=== PATIENT | female | born 1980 | race Caucasian/White ===

== ENCOUNTER 2016-03-15 00:51 | Emergency (ER) | payer MEDICAID ==
[2015-11-07 06:09] VITALS: BMI 23.9
[~2016-03-15 00:51] MED LIST: HYDROCODONE-APA1 TAB PO; SOMA350 MG PO
[2016-03-15 01:33] LABS: BASOPHILS 0.2 % (0.0-2.0); IMMATURE GRANULOCYTES 0.1 % (0-5); LYMPHOCYTES 47.1 % (15-50); MCH 30.8 pg (26.0-34.0); MCHC 32.4 g/dL (31.0-37.0); MCV 94.9 fL (80.0-100.0); MEAN PLATELET VOLUME 9.9 fL (7.4-10.4); MONOCYTES 13.6 % (2-11); PLATELET COUNT 288 10x3/uL (130-400); RDW 13.5 % (11.5-14.5); WBC 9.9 10x3/uL (4.8-10.8)
[2016-03-15 01:42] LABS: ALBUMIN 3.6 g/dL (3.4-5.0); ALKALINE PHOSPHATASE 70 U/L (46-116); ALT (SGPT) 26 U/L (10-68); BILIRUBIN - TOTAL 0.16 mg/dL (0.2-1.3); CALC OSMOLALITY 279 mosm/kg (275-300); CALCIUM 8.8 mg/dL (8.5-10.1); CARBON DIOXIDE 29.6 mmol/L (21.0-32.0); CHLORIDE - SERUM 104 mmol/L (98-107); CREATININE - SERUM 0.9 mg/dL (0.6-1.3); GLUCOSE 96 mg/dL (74-106); POTASSIUM - SERUM 3.6 mmol/L (3.5-5.1); PROTEIN - SERUM 7.8 g/dL (6.4-8.2); SODIUM 140 mmol/L (136-145); UREA NITROGEN 15 mg/dL (7-18); eGFR NON AFRICAN AMERICAN 76 mL/min (90-120)
[2016-03-15 02:18] LABS: APPEARANCE CLEAR (CLEAR); BILIRUBIN NEGATIVE (NEGATIVE); COLOR YELLOW (YELLOW); GLUCOSE NEGATIVE (NEGATIVE); KETONE SMALL mg/dL (NEGATIVE); LEUKOCYTE ESTERASE NEGATIVE (NEGATIVE); NITRITE NEGATIVE (NEGATIVE); PROTEIN NEGATIVE (NEGATIVE); UROBILINOGEN NORMAL (NORMAL)
== END 2016-03-15 03:45 | disposition home or self-care (01) ==
LOC: D.ER 00:51
PROVIDERS: Family Medicine
DX: R10.9 Unspecified abdominal pain (principal); F17.200 Nicotine dependence, unspecified, uncomplicated

== ENCOUNTER → 2016-10-23 14:17 | Outpatient (CLI) | payer MEDICAID ==
[2015-11-07 06:09] VITALS: BMI 23.9
[2016-10-23 17:46] LABS: ERYTHROCYTE SEDIMENTATION RATE 25 mm/hr (0-20)
[2016-10-26 12:11] LABS: ANA REFLEX - ANTICHROMATIN ABS 0.6 AI (0.0-0.9); ANA REFLEX - CENTROMERE B ABS <0.2 AI (0.0-0.9); ANA REFLEX - DBL STRANDED DNA 1 IU/mL (0-9); ANA REFLEX - DIRECT Positive (Negative); ANA REFLEX - JO-1 AB <0.2 AI (0.0-0.9); ANA REFLEX - RNP ANTIBODIES 0.8 AI (0.0-0.9); ANA REFLEX - SCL-70 <0.2 AI (0.0-0.9); ANA REFLEX - SJOGRENS AB SSB <0.2 AI (0.0-0.9); ANA REFLEX - SMITH AB 0.3 AI (0.0-0.9)
== END | disposition home or self-care (01) ==
LOC: D.LABREF 14:17
PROVIDERS: Student in an Organized Health Care Education/Training Program
DX: R21 Rash and other nonspecific skin eruption (principal); M25.50 Pain in unspecified joint; R53.83 Other fatigue

== ENCOUNTER 2016-12-12 17:07 | Emergency (ER) | payer MEDICAID ==
[2015-11-07 06:09] VITALS: BMI 23.9
[2016-12-12 20:13] LABS: BASOPHILS 0.2 % (0-2); EOSINOPHILS 3.5 % (0-7); HEMATOCRIT 40.8 % (36.0-48.0); HEMOGLOBIN 13.3 g/dL (12-16); IMMATURE GRANULOCYTES 0.3 % (0-5); LYMPHOCYTES 38.6 % (15-50); MCH 30.8 pg (26.0-34.0); MCHC 32.6 g/dL (31.0-37.0); MCV 94.4 fL (80.0-100.0); MEAN PLATELET VOLUME 9.8 fL (7.4-10.4); MONOCYTES 10.8 % (2-11); NEUTROPHILS 46.6 % (40-80); PLATELET COUNT 302 10x3/uL (130-400); RBC 4.32 10x6/uL (4.00-5.40); RDW 13.6 % (11.5-14.5); WBC 12.7 10x3/uL (4.8-10.8)
[2016-12-12 20:19] LABS: CALC OSMOLALITY 276 mosm/kg (275-300); CARBON DIOXIDE 30.5 mmol/L (21.0-32.0); CHLORIDE - SERUM 103 mmol/L (98-107); CREATININE - SERUM 0.8 mg/dL (0.6-1.3); GLUCOSE 94 mg/dL (74-106); POTASSIUM - SERUM 3.9 mmol/L (3.5-5.1); SODIUM 140 mmol/L (136-145); UREA NITROGEN 7 mg/dL (7-18); eGFR NON AFRICAN AMERICAN 87 mL/min (90-120)
== END 2016-12-12 21:44 | disposition home or self-care (01) ==
LOC: D.ER 17:07
PROVIDERS: Physician Assistant Medical
DX: H70.92 Unspecified mastoiditis, left ear (principal); F17.200 Nicotine dependence, unspecified, uncomplicated

== ENCOUNTER 2017-02-02 15:29 | Emergency (ER) | payer MEDICAID ==
[2015-11-07 06:09] VITALS: BMI 23.9
[2017-02-02 16:38] LABS: BASOPHILS 0.2 % (0-2); EOSINOPHILS 3.1 % (0-7); HCG URINE NEGATIVE (NEGATIVE); HEMATOCRIT 38.2 % (36.0-48.0); HEMOGLOBIN 12.9 g/dL (12-16); IMMATURE GRANULOCYTES 0.1 % (0-5); LYMPHOCYTES 54.3 % (15-50); MCHC 33.8 g/dL (31.0-37.0); MCV 91.8 fL (80.0-100.0); MEAN PLATELET VOLUME 9.8 fL (7.4-10.4); MONOCYTES 13.6 % (2-11); NEUTROPHILS 28.7 % (40-80); PLATELET COUNT 292 10x3/uL (130-400); RBC 4.16 10x6/uL (4.00-5.40); RDW 13.6 % (11.5-14.5); WBC 9.2 10x3/uL (4.8-10.8)
[2017-02-02 16:39] LABS: APPEARANCE CLEAR (CLEAR); BILIRUBIN NEGATIVE (NEGATIVE); COLOR YELLOW (YELLOW); GLUCOSE NEGATIVE (NEGATIVE); KETONE NEGATIVE (NEGATIVE); NITRITE NEGATIVE (NEGATIVE); PROTEIN NEGATIVE (NEGATIVE); SPECIFIC GRAVITY 1.015 (1.005-1.020); UROBILINOGEN NORMAL (NORMAL)
[2017-02-02 16:50] LABS: INR 0.96 (0.85-1.17); PROTIME 12.4 SECONDS (11.6-15.0)
[2017-02-02 16:52] LABS: D-DIMER-QUANTITATIVE 0.55 ug/mLFEU (0.20-0.54)
[2017-02-02 16:54] LABS: ALKALINE PHOSPHATASE 77 U/L (46-116); ALT (SGPT) 49 U/L (10-68); BILIRUBIN - TOTAL 0.19 mg/dL (0.2-1.3); CALC OSMOLALITY 267 mosm/kg (275-300); CARBON DIOXIDE 25.7 mmol/L (21.0-32.0); CHLORIDE - SERUM 102 mmol/L (98-107); CREATININE - SERUM 0.8 mg/dL (0.6-1.3); GLUCOSE 71 mg/dL (74-106); POTASSIUM - SERUM 3.6 mmol/L (3.5-5.1); PROTEIN - SERUM 8.6 g/dL (6.4-8.2); SODIUM 135 mmol/L (136-145); UREA NITROGEN 12 mg/dL (7-18); eGFR NON AFRICAN AMERICAN 87 mL/min (90-120)
[2017-02-02 17:04] LABS: CREATINE KINASE 85 UL (21-215); PRO BNP 48 pg/mL (0-125); TROPONIN-I < 0.017 ng/mL (0.000-0.060)
== END 2017-02-02 18:57 | disposition home or self-care (01) ==
LOC: D.ER 15:29
PROVIDERS: Nurse Practitioner Family
DX: M25.50 Pain in unspecified joint (principal); R06.02 Shortness of breath; D68.9 Coagulation defect, unspecified

== ENCOUNTER 2017-02-26 22:22 | Emergency (ER) | payer MEDICAID ==
[2015-11-07 06:09] VITALS: BMI 23.9
== END 2017-02-27 00:12 | disposition home or self-care (01) ==
LOC: D.ER 22:22
DX: R00.2 Palpitations (principal); H60.501 Unspecified acute noninfective otitis externa, right ear; D68.9 Coagulation defect, unspecified; F17.200 Nicotine dependence, unspecified, uncomplicated

== ENCOUNTER → 2017-03-30 13:36 | Outpatient (CLI) | payer MEDICAID ==
[2015-11-07 06:09] VITALS: BMI 23.9
== END | disposition home or self-care (01) ==
LOC: D.MRI 13:36
DX: R51 Headache (principal)

== ENCOUNTER 2017-10-03 04:55 | Emergency (ER) | payer MEDICAID ==
[~2017-10-03] VITALS: Ht 162.6 cm; Wt 61.8 kg
[2017-10-03 05:15] VITALS: Ht 162.6 cm; Wt 61.8 kg
[2017-10-03] MEDS ORDERED: ZANAFLEX2 M1 PO (05:16)
[2017-10-03] MEDS ORDERED: VALIUM10 MG PO (05:16)
[2017-10-03] MEDS ORDERED: CORTISPORIN OTI10 M1 EACH EAR (05:32)
[2017-10-03] MEDS ORDERED: NORCO 7.5/325 T1 TA1 PO (05:32)
[2017-10-03 06:08] VITALS: BP 130/88
== END 2017-10-03 06:08 | disposition home or self-care (01) ==
LOC: D.ER 04:55
DX: H60.92 Unspecified otitis externa, left ear (principal); F17.200 Nicotine dependence, unspecified, uncomplicated

== ENCOUNTER 2017-11-12 07:36 | Emergency (ER) | payer MEDICAID ==
[~2017-11-12] VITALS: Ht 162.6 cm; Wt 61.8 kg
[~2017-11-12 07:36] MED LIST changes: +CORTISPORIN OTI10 M1 EACH EAR; +NORCO 7.5/325 T1 TA1 PO; +VALIUM10 MG PO; +ZANAFLEX2 M1 PO
[2017-11-12 07:38] VITALS: Ht 162.6 cm; Wt 61.8 kg
[2017-11-12 08:05] LABS: BASOPHILS 0.2 % (0-2); EOSINOPHILS 1.8 % (0-7); HEMATOCRIT 35.4 % (36.0-48.0); HEMOGLOBIN 11.9 g/dL (12-16); IMMATURE GRANULOCYTES 0.1 % (0-5); MCH 31.5 pg (26.0-34.0); MCHC 33.6 g/dL (31.0-37.0); MCV 93.7 fL (80.0-100.0); MEAN PLATELET VOLUME 10.2 fL (7.4-10.4); MONOCYTES 13.3 % (2-11); NEUTROPHILS 50.6 % (40-80); RBC 3.78 10x6/uL (4.00-5.40); RDW 13.3 % (11.5-14.5); WBC 8.3 10x3/uL (4.8-10.8)
[2017-11-12 08:06] LABS: PLATELET COUNT 215 10x3/uL (130-400)
[2017-11-12 08:06] LABS: APPEARANCE CLEAR (CLEAR); BILIRUBIN NEGATIVE (NEGATIVE); COLOR YELLOW (YELLOW); GLUCOSE NEGATIVE (NEGATIVE); KETONE NEGATIVE (NEGATIVE); NITRITE NEGATIVE (NEGATIVE); PROTEIN NEGATIVE (NEGATIVE); UROBILINOGEN NORMAL (NORMAL)
[2017-11-12 08:09] LABS: UDS - AMPHET NEGATIVE QUAL (NEGATIVE); UDS - BARB NEGATIVE QUAL (NEGATIVE); UDS - BENZO POSITIVE QUAL (NEGATIVE); UDS - COCAINE NEGATIVE QUAL (NEGATIVE); UDS - OPIATE POSITIVE QUAL (NEGATIVE); UDS - PCP NEGATIVE QUAL (NEGATIVE); UDS - THC NEGATIVE QUAL (NEGATIVE)
[2017-11-12 08:30] LABS: ALBUMIN 3.2 g/dL (3.4-5.0); ALKALINE PHOSPHATASE 56 U/L (46-116); ALT (SGPT) 12 U/L (10-68); BILIRUBIN - TOTAL 0.21 mg/dL (0.2-1.3); CALC OSMOLALITY 277 mosm/kg (275-300); CALCIUM 8.2 mg/dL (8.5-10.1); CARBON DIOXIDE 24.6 mmol/L (21.0-32.0); CHLORIDE - SERUM 106 mmol/L (98-107); CREATININE - SERUM 0.8 mg/dL (0.6-1.3); GLUCOSE 94 mg/dL (74-106); POTASSIUM - SERUM 3.8 mmol/L (3.5-5.1); PROTEIN - SERUM 7.2 g/dL (6.4-8.2); SODIUM 140 mmol/L (136-145); UREA NITROGEN 9 mg/dL (7-18); eGFR NON AFRICAN AMERICAN 87 mL/min (90-120)
[2017-11-12 08:39] LABS: THYROID STIMULATING HORMONE 2.13 uIU/mL (0.36-3.74)
[2017-11-12 09:53] VITALS: BP 99/54
== END 2017-11-12 09:58 | disposition home or self-care (01) ==
LOC: D.ER 07:36
PROVIDERS: Family Medicine
DX: F11.129 Opioid abuse with intoxication, unspecified (principal); F13.129 Sedative, hypnotic or anxiolytic abuse with intoxication, unspecified; F17.200 Nicotine dependence, unspecified, uncomplicated

== ENCOUNTER 2018-01-06 11:36 | Emergency (ER) | payer MEDICAID ==
[~2018-01-06] VITALS: Ht 162.6 cm; Wt 60.0 kg
[2018-01-06 11:44] VITALS: Ht 162.6 cm; Wt 60.0 kg
[2018-01-06 12:13] LABS: HEMATOCRIT 41.4 % (36.0-48.0); MCH 31.5 pg (26.0-34.0); MCHC 33.8 g/dL (31.0-37.0); MEAN PLATELET VOLUME 9.7 fL (7.4-10.4); RBC 4.45 10x6/uL (4.00-5.40); RDW 13.6 % (11.5-14.5); WBC 8.2 10x3/uL (4.8-10.8)
[2018-01-06 12:27] LABS: PLATELET COUNT 340 10x3/uL (130-400)
[2018-01-06 12:32] LABS: ALBUMIN 4.2 g/dL (3.4-5.0); ALKALINE PHOSPHATASE 72 U/L (46-116); ALT (SGPT) 14 U/L (10-68); BILIRUBIN - TOTAL 0.17 mg/dL (0.2-1.3); CALC OSMOLALITY 274 mosm/kg (275-300); CALCIUM 9.4 mg/dL (8.5-10.1); CARBON DIOXIDE 25.5 mmol/L (21.0-32.0); CHLORIDE - SERUM 102 mmol/L (98-107); CREATININE - SERUM 0.8 mg/dL (0.6-1.3); GLUCOSE 91 mg/dL (74-106); POTASSIUM - SERUM 3.6 mmol/L (3.5-5.1); PROTEIN - SERUM 9.6 g/dL (6.4-8.2); SODIUM 138 mmol/L (136-145); UREA NITROGEN 9 mg/dL (7-18); eGFR NON AFRICAN AMERICAN 86 mL/min (90-120)
[2018-01-06 12:47] LABS: APPEARANCE HAZY (CLEAR); BILIRUBIN NEGATIVE (NEGATIVE); COLOR STRAW (YELLOW); GLUCOSE NEGATIVE (NEGATIVE); KETONE NEGATIVE (NEGATIVE); NITRITE NEGATIVE (NEGATIVE); PROTEIN NEGATIVE (NEGATIVE); UDS - AMPHET NEGATIVE QUAL (NEGATIVE); UDS - BARB NEGATIVE QUAL (NEGATIVE); UDS - BENZO POSITIVE QUAL (NEGATIVE); UDS - COCAINE NEGATIVE QUAL (NEGATIVE); UDS - OPIATE POSITIVE QUAL (NEGATIVE); UDS - PCP NEGATIVE QUAL (NEGATIVE); UDS - THC NEGATIVE QUAL (NEGATIVE); UROBILINOGEN NORMAL (NORMAL)
[2018-01-06 12:55] LABS: BASOPHILS 1 % (0-2); EOSINOPHILS 3 % (0-7); LYMPHOCYTES 48 % (15-50); MONOCYTES 14 % (2-11); NEUTROPHILS 31 % (40-80); PLATELET ESTIMATE NORMAL
[2018-01-06 16:10] VITALS: BP 128/082
== END 2018-01-06 16:11 ==
LOC: D.ER 11:36
PROVIDERS: Family Medicine
DX: F32.9 Major depressive disorder, single episode, unspecified (principal); R45.851 Suicidal ideations; M32.9 Systemic lupus erythematosus, unspecified; F17.200 Nicotine dependence, unspecified, uncomplicated

== ENCOUNTER 2018-11-07 20:09 | Emergency (ER) | payer MEDICAID ==
[~2018-11-07] VITALS: Ht 162.6 cm; Wt 65.0 kg
[2018-11-07 20:14] VITALS: Ht 162.6 cm; Wt 65.0 kg
[2018-11-07] MEDS ORDERED: TRINTELLIX20 MG PO (20:16)
[2018-11-07] MEDS ORDERED: PLAQUINIL PO (20:18)
[2018-11-07] MEDS ORDERED: ABILIFY10 MG PO (20:19)
[2018-11-07 21:00] LABS: BASOPHILS 0.4 % (0-2); EOSINOPHILS 3.5 % (0-7); HEMATOCRIT 32.9 % (36.0-48.0); HEMOGLOBIN 11.4 g/dL (12-16); IMMATURE GRANULOCYTES 0.1 % (0-5); LYMPHOCYTES 48.6 % (15-50); MCH 31.4 pg (26.0-34.0); MCHC 34.7 g/dL (31.0-37.0); MCV 90.6 fL (80.0-100.0); MEAN PLATELET VOLUME 9.4 fL (7.4-10.4); MONOCYTES 15.5 % (2-11); NEUTROPHILS 31.9 % (40-80); PLATELET COUNT 294 10x3/uL (130-400); RBC 3.63 10x6/uL (4.00-5.40); RDW 13.6 % (11.5-14.5); WBC 7.9 10x3/uL (4.8-10.8)
[2018-11-07 21:15] LABS: ALBUMIN 3.5 g/dL (3.4-5.0); ALKALINE PHOSPHATASE 71 U/L (46-116); ALT (SGPT) 17 U/L (10-68); BILIRUBIN - TOTAL 0.18 mg/dL (0.2-1.3); CALC OSMOLALITY 267 mosm/kg (275-300); CALCIUM 8.6 mg/dL (8.5-10.1); CHLORIDE - SERUM 102 mmol/L (98-107); CREATININE - SERUM 0.8 mg/dL (0.6-1.3); GLUCOSE 86 mg/dL (74-106); MAGNESIUM - SERUM 1.9 mg/dL (1.8-2.4); POTASSIUM - SERUM 3.2 mmol/L (3.5-5.1); PROTEIN - SERUM 7.4 g/dL (6.4-8.2); SODIUM 135 mmol/L (136-145); UREA NITROGEN 10 mg/dL (7-18); eGFR NON AFRICAN AMERICAN 86 mL/min (90-120)
[2018-11-07 21:27] LABS: APPEARANCE CLEAR (CLEAR); BILIRUBIN NEGATIVE (NEGATIVE); COLOR YELLOW (YELLOW); GLUCOSE NEGATIVE (NEGATIVE); KETONE NEGATIVE (NEGATIVE); NITRITE NEGATIVE (NEGATIVE); PROTEIN NEGATIVE (NEGATIVE); SPECIFIC GRAVITY 1.025 (1.005-1.020); UROBILINOGEN NORMAL (NORMAL)
[2018-11-07 21:38] LABS: UDS - AMPHET POSITIVE QUAL (NEGATIVE); UDS - BARB NEGATIVE QUAL (NEGATIVE); UDS - BENZO NEGATIVE QUAL (NEGATIVE); UDS - COCAINE NEGATIVE QUAL (NEGATIVE); UDS - OPIATE POSITIVE QUAL (NEGATIVE); UDS - PCP NEGATIVE QUAL (NEGATIVE); UDS - THC POSITIVE QUAL (NEGATIVE)
[2018-11-07] MEDS ORDERED: PHENERGAN25 M1 PO (22:39)
[2018-11-08 00:10] VITALS: BP 126/77
== END 2018-11-08 00:16 | disposition home or self-care (01) ==
LOC: D.ER 20:09
PROVIDERS: Family Medicine
DX: R51 Headache (principal); F31.9 Bipolar disorder, unspecified

== ENCOUNTER 2019-08-29 18:00 | Emergency (ER) | payer MEDICAID ==
[2018-11-07 20:14] VITALS: BMI 24.6
[~2019-08-29 18:00] MED LIST changes: +ABILIFY10 MG PO; +PHENERGAN25 M1 PO; +PLAQUINIL PO; +TRINTELLIX20 MG PO
== END 2019-08-29 18:22 | disposition left against medical advice (07) ==
LOC: D.ER 18:00
DX: R06.02 Shortness of breath (principal); R11.2 Nausea with vomiting, unspecified; R42 Dizziness and giddiness

== ENCOUNTER 2020-08-24 16:40 | Emergency (ER) | payer MEDICAID ==
[~2020-08-24] VITALS: Ht 162.6 cm; Wt 63.6 kg
[2020-08-24 16:50] VITALS: BP 112/67; Ht 162.6 cm; Wt 63.6 kg
[2020-08-24 17:09] LABS: HEMATOCRIT 39.3 % (36.0-48.0); MCH 30.7 pg (26.0-34.0); MCHC 33.1 g/dL (31.0-37.0); MCV 92.8 fL (80.0-100.0); MEAN PLATELET VOLUME 7.9 fL (7.4-10.4); PLATELET COUNT 324 10x3/uL (130-400); RBC 4.24 10x6/uL (4.00-5.40); RDW 13.4 % (11.5-14.5); WBC 9.8 10x3/uL (4.8-10.8)
[2020-08-24 17:15] LABS: CALC OSMOLALITY 278 mosm/kg (275-300); CALCIUM 8.4 mg/dL (8.5-10.1); CARBON DIOXIDE 24.5 mmol/L (21.0-32.0); CHLORIDE - SERUM 104 mmol/L (98-107); CREATININE - SERUM 0.8 mg/dL (0.6-1.3); GLUCOSE 114 mg/dL (74-106); POTASSIUM - SERUM 3.6 mmol/L (3.5-5.1); SODIUM 140 mmol/L (136-145); UREA NITROGEN 11 mg/dL (7-18); eGFR NON AFRICAN AMERICAN 85 mL/min (90-120)
[2020-08-24 17:21] LABS: ALBUMIN 3.8 g/dL (3.4-5.0); ALKALINE PHOSPHATASE 62 U/L (30-120); ALT (SGPT) 18 U/L (10-68); BILIRUBIN - TOTAL 0.17 mg/dL (0.2-1.3); PROTEIN - SERUM 7.7 g/dL (6.4-8.2)
[2020-08-24 18:14] LABS: EOSINOPHILS 4 % (0-7); LYMPHOCYTES 50 % (15-50); MONOCYTES 8 % (2-11); NEUTROPHILS 37 % (40-80); PLATELET ESTIMATE NORMAL
== END 2020-08-24 19:20 | disposition left against medical advice (07) ==
LOC: D.ER 16:40
PROVIDERS: Family Medicine
DX: R53.1 Weakness (principal)